=== PATIENT | female | born 1940 | race Caucasian/White ===

== ENCOUNTER 2017-04-15 20:20 | Inpatient (IN) | payer OTHER ==
--- NOTE | 2017-04-15 20:52 | EDPHY ---
H & P Stated Complaint: weakness, conused, recent diagnosed of UTI HPI/ROS: CHIEF COMPLAINT: Weakness, confused, recent UTI HISTORY OF PRESENT ILLNESS: The patient is a 76 y/o female with a history of hypertension, complaining of weakness, dizziness, and confusion. She was referred to the emergency department by her primary care physician, Dr. Quiñones. Much of this history was provided to me by Dr. Quiñones. On 03/15/17 the patient hit her head and received a black eye, there was no loss of consciousness. She did not receive medical care at that time. Following this injury, on March 26, she saw her PCP, the patient was doing well at that visit. On 03/27/17 she was seen in the emergency department at [facility] and diagnosed with a UTI and placed on Keflex. She fell due to dizziness on 03/29/17 and was again seen at [facility] Emergency Department. They reportedly performed a head CT and MRI, as well as a C-spine CT. On 04/06/17 she was seen by her PCP and was more confused; she was prescribed Macrobid at that visit. Her confusion persisted and On 04/09/17 she was admitted to [facility] for three days with a sodium of 124; her antibiotics were stopped during this visit. When she was discharged from that hospitalization she was advised to have someone with her at all times. As a result, family members have been staying with her. She does have some home health care including physical therapy and occupational therapy. Tonight she was advised to come to the ED by her PCP as she has been more weak, dizzy, and has had difficulty finding her words. The dizziness occurs when she stands up to use her walker. Her family has noticed that the patient has been more confused and talking about things that aren't happening. Her efdumzgh-sx-eyo accompanies her tyson and states that her balance seems intermittently poor. Her symptoms seemed to wax and wane. Currently has a mild burning sensation when urinating. Denies chest pain, shortness of breath, abdominal pain, bowel complaints, fevers or other pertinent symptoms. REVIEW OF SYSTEMS: A ten point review of systems was performed and is negative with the exception of the items mentioned in the HPI. Past medical history: 1. Hypertension 2. Hyponatremia 3. UTI 4. Breast cancer Past surgical history: Denies Family history: 1. Cataracts 2. Appendectomy 3. Bilateral mastectomy 4. Hysterectomy 5. Knee surgery Social history: Usspxbcd-ps-vlj at bedside, lives in [place], retired, General Appearance: Alert. Vital signs reviewed. Blood pressure 142/93. Eyes: Pupils equal and round, no conjunctival injection, no discharge. Anicteric. ENT, Mouth: Mucous membranes are moist, no oropharyngeal erythema or edema. Torus palatine. Neck: No lymphadenopathy, supple. Respiratory: Lungs are clear to auscultation; no wheezes, rales, or rhonchi. Cardiovascular: Regular rate and rhythm; no murmur, rub, or gallop. Gastrointestinal: Abdomen is soft and nontender, no masses or organomegaly, bowel sounds normal. Skin: Warm and dry, no rashes on exposed skin, normal color. Back: Nontender to palpation over the thoracolumbar spine. No CVAT. Extremities: No lower extremity edema, no calf tenderness or swelling. Neurological: Alert and oriented to person, place, year, and situation. Moving all four extremities easily and equally. Cranial nerves II through XII are examined and are intact (visual acuity not tested). She is somewhat slow to respond to questions and commands. She appears to have occasional word- finding difficulty. Strength is 5- over 5 bilaterally with testing of all major motor groups. Sensation is intact to light touch over all 4 extremities. Myacws-at-wbfz is performed accurately. Her gait, with assist, is slow and shuffling. No ataxia. Psychiatric: Normal affect. - Medical/Surgical History Hx Asthma: No Hx Chronic Respiratory Disease: No Hx Diabetes: No Hx Cardiac Disease: No Hx Renal Disease: No Hx Cirrhosis: No Hx Alcoholism: No Hx HIV/AIDS: No Hx Splenectomy or Spleen Trauma: No Other PMH: htn - Social History Smoking Status: Never smoked Constitutional: Initial Vital Signs Temperature (C) 36.6 C 04/15/17 20:30 Heart Rate 93 04/15/17 20:30 Respiratory Rate 20 04/15/17 20:30 Blood Pressure 142/93 H 04/15/17 20:30 O2 Sat (%) 94 04/15/17 20:30 O2 Delivery Mode Room Air O2 (L/minute) 2 Allergies/Adverse Reactions: indomethacin [From Indocin] Allergy (Severe, Verified 04/15/17 20:30) "FLUFF" IN CHEST-OUTSIDE OF LUNGS indomethacin sodium [From Indocin] Allergy (Severe, Verified 04/15/17 20:30) "FLUFF" IN CHEST-OUTSIDE OF LUNGS Sulfa (Sulfonamide Antibiotics) Allergy (Mild, Verified 04/15/17 20:30) Itching Home Medications: Medication Instructions Recorded ALLOPURINOL 06/20/09 ATENOLOL 06/20/09 Aspirin 06/20/09 Calcium 06/20/09 Chondroitin 06/20/09 Glucosamine 06/20/09 Hyzaar 06/20/09 Lasix 06/20/09 Lipitor 10 mg 06/20/09 Lopid 06/20/09 Norvasc 10 mg 06/20/09 Vitamin D 06/20/09 metFORMIN HCL 06/20/09 Medical Decision Making - Diagnostics Imaging: Discussed imaging studies w/ faculty i on call medical assistant Radiologist, I viewed and interpreted images myself ED Course/Re-evaluation: The patient is a 76 y/o female with a history of hypertension, recent hyponatremia, and recurrent or persistent UTI presenting with worsening confusion and weakness over the past month. Labs, EKG, and head CT ordered. She has had imaging done at an outside facility but she has had a fall, worsening balance and gait instability, and worsening confusion. I am concerned about a subacute or chronic subdural. I do not have confirmed results of her previous brain imaging. 2222: The 12 lead EKG was interpreted by myself as sinus rhythm with a rate of 76. See hard copy and/or "tracemaster" electronic copy for interpretation. 2234: Spoke with Dr. Bauman, radiologist, regarding this patient's head CT. There are no acute findings. Labs are reviewed. She is not hyponatremic today. White blood cell count is normal. TSH is normal. Clean-catch urine is positive for leukocyte esterase and white blood cells. It is sent for culture. I am suspecting recurrent or partially treated urinary tract infection. This may be the etiology of her confusion. She was given IV Invanz in the emergency department. 1 month ago she was reportedly living independently, paying her bills, and driving. Her family states that her gait was slow but that it has worsened appreciably over the past month. The acuity of her cognitive deterioration is not clear to me at this point. It is possible that her recent infections have unearthed some pre-existing cognitive impairment. I was able to access some of her records through [facility]. Brain MRI performed at a [facility] showed mild to moderate ischemic white matter disease with micro hemorrhage in the left hemisphere. Nothing has been found on brain imaging that would explain a change in cognition. There has been no report of seizure activity. Electrolytes tonight are normal with no evidence of hyponatremia. She does not drink alcohol. She is being admitted to the hospital for further evaluation--to look for reversible causes of dementia-- and treatment as needed. Differential Diagnosis: Altered mental status including but not limited to ongoing cognitive impairment , hypoglycemia, infectious process, electrolyte abnormality, head injury and intoxicants. - Data Points Laboratory Results: Laboratory Results 04/15/17 22:45 04/15/17 22:45 04/16/17 04/16/17 04/16/17 00:00 00:00 00:00 Sodium Potassium Chloride Carbon Dioxide Anion Gap BUN Creatinine Estimated GFR Glucose Calcium Phosphorus Troponin I Vitamin B12 582 pg/mL pg/mL (239-931) Vit D 1,25-Dihydroxy Pending TSH Urine Color YELLOW Urine Appearance HAZY Urine pH 6.0 (5.0-7.5) Ur Specific [place] 1.015 (1.002-1.030) Urine Protein NEGATIVE (NEGATIVE) Urine Ketones NEGATIVE (NEGATIVE) Urine Blood NEGATIVE (NEGATIVE) Urine Nitrate NEGATIVE (NEGATIVE) Urine Bilirubin NEGATIVE (NEGATIVE) Urine Urobilinogen NEGATIVE EU EU (0.2-1.0) Ur Leukocyte Esterase 3+ H (NEGATIVE) Urine RBC 1-3 /hpf /hpf (0-3) Urine WBC 25-50 /hpf H /hpf (0-3) Ur Epithelial Cells TRACE /lpf /lpf (NONE-1+) Urine Mucus TRACE /lpf /lpf (NONE-1+) Urine Glucose NEGATIVE (NEGATIVE) 04/15/17 22:45 Sodium 139 mEq/L mEq/L (135-145) Potassium 4.3 mEq/L mEq/L (3.5-5.2) Chloride 101 mEq/L mEq/L (97-110) Carbon Dioxide 24 mEq/l mEq/l (22-31) Anion Gap 14 mEq/L mEq/L (8-16) BUN 29 mg/dL H mg/dL (7-23) Creatinine 1.0 mg/dL mg/dL (0.6-1.0) Estimated GFR 54 Glucose 136 mg/dL H mg/dL (70-100) Calcium 10.7 mg/dL H mg/dL (8.5-10.4) Phosphorus 3.3 mg/dL mg/dL (2.5-4.5) Troponin I < 0.012 ng/mL ng/mL (0.000-0.034) Vitamin B12 Vit D 1,25-Dihydroxy TSH 1.530 uIU/mL uIU/mL (0.465-4.680) Urine Color Urine Appearance Urine pH Ur Specific Uriah Urine Protein Urine Ketones Urine Blood Urine Nitrate Urine Bilirubin Urine Urobilinogen Ur Leukocyte Esterase Urine RBC Urine WBC Ur Epithelial Cells Urine Mucus Urine Glucose Medications Given: Acetaminophen (Tylenol) 650 mg PO Q4HRS PRN PRN Reason: Pain, Mild/Fever, Can Take PO Stop: 10/13/17 00:04 Last Admin: 04/16/17 02:00 Dose: 650 mg Enoxaparin Sodium (Lovenox) 30 mg SC DAILY [facility] Stop: 10/13/17 08:59 Last Admin: 04/16/17 09:28 Dose: 30 mg Discontinued Medications Ertapenem (Invanz) 1 gm IVP EDNOW ONE PRN Reason: Protocol Stop: 04/16/17 00:24 Last Admin: 04/16/17 00:52 Dose: 1 gm Departure - Departure Disposition: [facility] Inpatient Acute Clinical Impression: Urinary tract infection Qualifiers: Urinary tract infection type: acute cystitis Hematuria presence: without hematuria Qualified Code(s): N30.00 - Acute cystitis without hematuria Altered mental status Qualifiers: Altered mental status type: unspecified Qualified Code(s): R41.82 - Altered mental status, unspecified Condition: Good Report Scribed for: Kacie Parks Report Scribed by: Lynn Santos Date of Report: 04/15/17 Time of Report: 21:02 Physician Review and Approval Statement: 04/15/17 20:52 Portions of this note were transcribed by the certified medical asst. I, Dr. Kacie Parks, personally performed the history, physical exam, and medical decision- making; and confirmed the accuracy of the information in the transcribed note.
--- NOTE | 2017-04-15 22:25 | CPEKG ---
Heart Rate: 76 RR Interval: 789 P-R Interval: 180 QRSD Interval: 86 QT Interval: 384 QTC Interval: 432 P [place]: 64 QRS [place]: -21 T Wave [place]: 72 EKG Severity - OTHERWISE NORMAL ECG - EKG Impression: SINUS RHYTHM EKG Impression: BORDERLINE LEFT AXIS DEVIATION Electronically Signed By: Kacie Parks 15-Apr-2017 23:58:15
[2017-04-15 22:58] LABS: PLATELET COUNT 201 10^3/uL (150-400)
[2017-04-16] MEDS ORDERED: ACETAMINOPHEN 325 MG TAB PO PRN (00:05)
[2017-04-16] MEDS ORDERED: ONDANSETRON DISINTEGRATING 4 MG TAB PO PRN (00:05)
[2017-04-16] MEDS ORDERED: ONDANSETRON 4 MG/2 ML VIAL IVP PRN (00:05)
[2017-04-16] MEDS ORDERED: ERTAPENEM 1 GM VIAL IVP ONE (00:23)
--- NOTE | 2017-04-16 01:09 | PDGENHP ---
History and Physical - Chief Complaint Falls, confusion - History of Present Illness 76 yo F w/ hx of HTN, gout, diet controlled DM, and remote hx of breast CA presents with 1 month of falls and confusion. Patient was sent to ED by PCP due to concern for patient's rapid decline in functional status. As of one month ago patient was paying her own bills and doing quite well living independently. Over the last month she has experienced falls, episodes of confusion, and dizziness. She was admitted to [facility] twice during this period ( records available in [facility]) and treated for UTI and hyponatremia. In terms of her UTI she was initially treated with Keflex but then changed to Macrobid when her culture revealed ESBL E. Coli. Patient reports many UTI's throughout the course of her life. Macrobid was stopped early as UA was normal on 04/09. Patient notes her dysuria returned after the antibiotics stopped. Today patient denies confusion but feels fatigued and somewhat generally weak. Work-up in the ED was relatively unremarkable with normal chemistry, no leukocytosis, and a non-acute CTH. Patient is being admitted for further work- up. History Information - Allergies/Home Medication List Allergies/Adverse Reactions: indomethacin [From Indocin] Allergy (Severe, Verified 04/15/17 20:30) "FLUFF" IN CHEST-OUTSIDE OF LUNGS indomethacin sodium [From Indocin] Allergy (Severe, Verified 04/15/17 20:30) "FLUFF" IN CHEST-OUTSIDE OF LUNGS Sulfa (Sulfonamide Antibiotics) Allergy (Mild, Verified 04/15/17 20:30) Itching Home Medications: ALLOPURINOL 06/20/09 [Last Taken Unknown] ATENOLOL 06/20/09 [Last Taken Unknown] Aspirin 06/20/09 [Last Taken Unknown] Calcium 06/20/09 [Last Taken Unknown] Chondroitin 06/20/09 [Last Taken Unknown] Glucosamine 06/20/09 [Last Taken Unknown] Hyzaar 06/20/09 [Last Taken Unknown] Lasix 06/20/09 [Last Taken Unknown] Lipitor 10 mg 06/20/09 [Last Taken Unknown] Lopid 06/20/09 [Last Taken Unknown] Norvasc 10 mg 06/20/09 [Last Taken Unknown] Vitamin D 06/20/09 [Last Taken Unknown] metFORMIN HCL 03/31/10 [Last Taken Unknown] I have personally reviewed and updated: family history, medical history - Past Medical History cancer (Breast, remote), diabetes type 2, hypertension Additional medical history: Gout - Family History Positive for: cancer - Social History Smoking Status: Never smoked Review of Systems Review of Systems: ROS: 10pt was reviewed & negative except for what was stated in HPI & below Physical Exam Physical Exam: Temp Pulse Resp BP Pulse Ox 36.6 C 74 16 131/70 H 95 04/15/17 20:30 04/16/17 00:30 04/16/17 00:30 04/16/17 00:30 04/16/17 00:30 O2 (L/minute) 2 Constitutional: no apparent distress, not in pain Eyes: PERRL, EOMI Ears, Nose, Mouth, Throat: moist mucous membranes, no oral mucosal ulcers Cardiovascular: regular rate and rhythym, systolic murmur Respiratory: no respiratory distress, clear to auscultation Gastrointestinal: normoactive bowel sounds, soft, non-tender abdomen Skin: warm, normal color Musculoskeletal: full muscle strength, no muscle tenderness Neurologic: CN II-XII Intact, other (A&Ox2, thought it was April 19) Psychiatric: interacting appropriately, not anxious Lab Data & Imaging Review 04/15/17 22:45 04/15/17 22:45 WBC 6.57 10^3/uL (3.80-9.50) 04/15/17 22:45 RBC 4.01 10^6/uL (4.18-5.33) L 04/15/17 22:45 Hgb 12.5 g/dL (12.6-16.3) L 04/15/17 22:45 Hct 35.9 % (38.0-47.0) L 04/15/17 22:45 MCV 89.5 fL (81.5-99.8) 04/15/17 22:45 MCH 31.2 pg (27.9-34.1) 04/15/17 22:45 MCHC 34.8 g/dL (32.4-36.7) 04/15/17 22:45 RDW 13.9 % (11.5-15.2) 04/15/17 22:45 Plt Count 201 10^3/uL (150-400) 04/15/17 22:45 MPV 10.8 fL (8.7-11.7) 04/15/17 22:45 Neut % (Auto) 67.4 % (39.3-74.2) 04/15/17 22:45 Lymph % (Auto) 23.7 % (15.0-45.0) 04/15/17 22:45 [place] % (Auto) 6.7 % (4.5-13.0) 04/15/17 22:45 Eos % (Auto) 1.5 % (0.6-7.6) 04/15/17 22:45 Baso % (Auto) 0.5 % (0.3-1.7) 04/15/17 22:45 Nucleat RBC Rel Count 0.0 % (0.0-0.2) 04/15/17 22:45 Absolute Neuts (auto) 4.43 10^3/uL (1.70-6.50) 04/15/17 22:45 Absolute Lymphs (auto) 1.56 10^3/uL (1.00-3.00) 04/15/17 22:45 Absolute Monos (auto) 0.44 10^3/uL (0.30-0.80) 04/15/17 22:45 Absolute Eos (auto) 0.10 10^3/uL (0.03-0.40) 04/15/17 22:45 Absolute Basos (auto) 0.03 10^3/uL (0.02-0.10) 04/15/17 22:45 Absolute Nucleated RBC 0.00 10^3/uL (0-0.01) 04/15/17 22:45 Immature Gran % 0.2 % (0.0-1.1) 04/15/17 22:45 Immature Gran # 0.01 10^3/uL (0.00-0.10) 04/15/17 22:45 Sodium 139 mEq/L (135-145) 04/15/17 22:45 Potassium 4.3 mEq/L (3.5-5.2) 04/15/17 22:45 Chloride 101 mEq/L (97-110) 04/15/17 22:45 Carbon Dioxide 24 mEq/l (22-31) 04/15/17 22:45 Anion Gap 14 mEq/L (8-16) 04/15/17 22:45 BUN 29 mg/dL (7-23) H 04/15/17 22:45 Creatinine 1.0 mg/dL (0.6-1.0) 04/15/17:45 Estimated GFR 54 04/15/17 22:45 Glucose 136 mg/dL (70-100) H 04/15/17:45 Calcium 10.7 mg/dL (8.5-10.4) H 04/15/17:45 Phosphorus 3.3 mg/dL (2.5-4.5) 04/15/17:45 Troponin I < 0.012 ng/mL (0.000-0.034) 04/15/17:45 TSH 1.530 uIU/mL (0.465-4.680) 04/15/17:45 Urine Color YELLOW 04/16/17 00:00 Urine Appearance HAZY 04/16/17 00:00 Urine pH 6.0 (5.0-7.5) 04/16/17 00:00 Ur Specific [place] 1.015 (1.002-1.030) 04/16/17 00:00 Urine Protein NEGATIVE (NEGATIVE) 04/16/17 00:00 Urine Ketones NEGATIVE (NEGATIVE) 04/16/17 00:00 Urine Blood NEGATIVE (NEGATIVE) 04/16/17 00:00 Urine Nitrate NEGATIVE (NEGATIVE) 04/16/17 00:00 Urine Bilirubin NEGATIVE (NEGATIVE) 04/16/17 00:00 Urine Urobilinogen NEGATIVE EU (0.2-1.0) 04/16/17 00:00 Ur Leukocyte Esterase 3+ (NEGATIVE) H 04/16/17 00:00 Urine RBC 1-3 /hpf (0-3) 04/16/17 00:00 Urine WBC 25-50 /hpf (0-3) H 04/16/17 00:00 Ur Epithelial Cells TRACE /lpf (NONE-1+) 04/16/17 00:00 Urine Mucus TRACE /lpf (NONE-1+) 04/16/17 00:00 Urine Glucose NEGATIVE (NEGATIVE) 04/16/17 00:00 Imaging Review: Imaging Impressions Head CT 04/15/17 22:01 Impression: Senescent features, with no acute/subacute intracranial abnormality identified on this unenhanced CT evaluation. If there is further clinical concern regarding the patient's symptoms, MR imaging is suggested, if not otherwise contraindicated. Findings were discussed with CHRISTOPHER BECKWITH MD at 22:33, on 04/15/2017. Assessment & Plan Assessment: 76 yo F w/ HTN, diet controlled DM, gout, and history of breast CA presents with ongoing issues with falls and confusion in the setting of persistent UTI. Plan: 1. Falls, confusion - This has been waxing and waning for the last month with 2 admissions to [facility]. She was initially diagnosed with a UTI and treated with Keflex and then Macrobid when culture revealed ESBL. Her UA is infectious again today and she is also complaining of dysuria. It is possible these symptoms are due to persistent infection. However, her PCP directed patient to ED due to concern over sharp functional decline over the course of the last month. [facility] records (available in [facility]) notable for mild to moderate, chronic ischemic disease and small focus of chronic microhemorrhage in the left cerebral hemisphere. - Reversible dementia work-up with TSH, B12, RPR - Neurology consultation - Treat UTI as below - PT/OT consultations 2. UTI - Seems to be persistent for the last month despite courses of Keflex and Macrobid. Records from [facility] indicate ESBL E. Coli. It is possible Macrobid was insufficient treatment for this organism. Patient started experiencing dysuria shortly after stopping antibiotics. - Invanz 1g qD - Repeat urine culture 3. HTN - On amlodipine 10 mg qD and Losartan/HCTZ 100/25 qD as outpatient, needs med reconciliation. 4. Gout - Maintained on allopurinol, no evidence of exacerbation. 5. DM - Diet controlled, not on medications. Monitor and would start low protocol insulin if hyperglycemic. Diet - Regular Code - Full Ppx - LMWH Dispo - Admit to observation status
[2017-04-16 04:43] LABS: PLATELET COUNT 182 10^3/uL (150-400)
[2017-04-16] MEDS ORDERED: ENOXAPARIN 30 MG/0.3 ML SYR SC SCH ×2 (09:00→11:28)
--- NOTE | 2017-04-16 10:12 | GCON ---
[f rep st] CONSULTATION NEUROLOGY CONSULT DATE OF CONSULTATION: 04/16/2017 CHIEF COMPLAINT: Mental status changes and gait changes. HISTORY OF PRESENT ILLNESS: The patient is a very pleasant 76-year-old lady who may have an underlyi ng mild cognitive impairment that has been present for 2 or 3 years. According to the patient, she h as had some very mild short-term memory changes in the last 2-3 years. In addition, she has hyperten jurgen, gout, diet-controlled diabetes, and a remote history of breast cancer. She began having recurr ent UTIs around 1 month ago. In this setting, has had lightheadedness with standing based on her flu id intake, which has led to a fall and the need for intermittent use of her walker, along with feelin g confused at times. No focality of these symptoms. She was admitted twice at [facility] this period, and I reviewed Dr. Flores's H and P, which notes he reviewed outside records, inc luding a recent MRI brain, which he reports as being notable for mild to moderate chronic ischemic di sease and a single focus of microhemorrhage in the left hemisphere. We repeated a head CT here, whic h showed an elderly brain. Her UA is still abnormal with 25-50 white cells present in the urine. Jina hoffman is being treated for a recurrent UTI and has dysuria again. REVIEW OF SYSTEMS: Ten-point review of systems was done and only pertinent to the HPI. For past medical history, social history, family history, and home medications, please see Dr. Flores's note. PHYSICAL EXAM: VITAL SIGNS: Temperature 36.6, pulse 74, respirations 16, blood pressure 137/70. NE UROLOGIC: Generally, no acute distress, very pleasant. Higher mental function: She is awake and al ert, repeats 5/5, names 5/5, follows commands 3/3. No aphasia. She is oriented to month, date, and year. She knows the name of the president and the ramp service agent. She knows the city and state. He r mental status exam was objectively normal with the exception of some mild psychomotor slowing in fo llowing commands. It took her a moment to register showing 3 fingers on her left hand, for example. Cranial nerve exam 2 through 7 was normal. Motor exam was normal to strength and tone throughout. Sensory exam: Normal to light touch throughout. Qbnofg-vwmu-roizjt was normal bilaterally. IMPRESSION/PLAN: 1. Delirium. 2. Recurrent urinary tract infections. 3. Query underlying mild cognitive impairment. Overall, my impression is the patient is having some mild delirium in the setting of recurrent urinar y tract infections and possible underlying mild cognitive impairment. I do not see an acute neurolog ic process based on her current history, exam, and imaging. She was counseled at length. She is edi ng treated for her urinary tract infection. I defer to my colleagues in Hospital Medicine for final treatment recommendations and disposition. Her laboratory values show a normal TSH and B12. Going forward, my office will contact her to make an outpatient followup once her infection is resolv ed for further evaluation and treatment of possible mild cognitive impairment. No further recommenda tions now. Thank you for this consultation. We will continue to follow this very pleasant lady as needed. Plea se do not hesitate to call with any questions or changes in neurologic status with this patient. Flores stein total minutes on floor today reviewing records, imaging, labs, and indirect counseling with the patient and coordination of care. /[id number]/MODL
--- NOTE | 2017-04-16 10:39 | ASMTCASEMG ---
Living Arrangements What is your living Answers: Alone arrangement? Who do you live with? Type Of Residence What kind of residence do Answers: House you live in? Discharge Plan Comments Coordination Status Comments Notes: Pt is a 76 y/o female admitted for falls and confusion. Therapies have been ordered and awaiting recommendation. Neurology is consulting. Needs are TBD at this time. CM to follow. Plan: TBD Date Signed: 04/16/2017 10:38 AM Electronically Signed By:PHANI Vidal
--- NOTE | 2017-04-16 13:06 | HOSPPROG ---
Hospitalist Progress Note Assessment/Plan: Assessment: 76 yo F w/ HTN, diet controlled DM, gout, and history of breast CA presents with ongoing issues with falls and confusion in the setting of persistent UTI. 1. Falls, confusion thought to be secondary to metabolic encephalopathy in the setting of urinary tract infection -MRI of the brain done at [facility] was negative for metastatic disease. I discussed case with Dr. Funez of neurology who recommends treatment of the UTI and outpatient follow-up - Reversible dementia work-up with TSH, B12, RPR - Treat UTI as below - PT/OT recommends halfway facility placement 2. UTI - Seems to be persistent for the last month despite courses of Keflex and Macrobid. Records from [facility] indicate ESBL E. Coli. It is possible Macrobid was insufficient treatment for this organism. Patient started experiencing dysuria shortly after stopping antibiotics. - Invanz 1g qD - Repeat urine culture 3. HTN - On amlodipine 10 mg qD and Losartan/HCTZ 100/25 qD as outpatient, needs med reconciliation. 4. Gout - Maintained on allopurinol, no evidence of exacerbation. 5. DM - Diet controlled, not on medications. Monitor and would start low protocol insulin if hyperglycemic. Diet - Regular Code - Full Ppx - LMWH Dispo - change in patient's status is the patient is quite debilitated will likely need halfway facility placement Subjective: Still reports some word-finding difficulties but overall feeling better. She did have some pain with urination this morning. Her appetite is decreased but she is eating. Denies any chest pain or shortness of breath. Objective: Vital Signs Temp Pulse Resp BP Pulse Ox 36.9 C 86 16 142/74 H 98 04/16/17 10:58 04/16/17 10:58 04/16/17 10:58 04/16/17 10:58 04/16/17 10:58 Laboratory Results 04/16/17 04:18 04/16/17 04:18 04/15/17 04/16/17 04/17/17 05:59 05:59 05:59 Intake Total 20 240 Output Total 850 250 Balance -830 -10 - Physical Exam Constitutional: no apparent distress, appears nourished, not in pain Cardiovascular: regular rate and rhythym, no murmur, rub, or gallop Respiratory: no respiratory distress, no rales or rhonchi, clear to auscultation Neurologic: AAOx3, CN II-XII Intact, other (Coordinate Measuring Machine Technician strength is 5/5 bilateral and equal), No pronator drift, No facial droop ICD10 Worksheet Patient Problems: Problems Problem Status Onset Urinary tract infection Acute Altered mental status Acute
--- NOTE | 2017-04-16 17:08 | PDMN ---
Medical Necessity Medical necessity: Pt meets IP criteria per MD; est los >2 mn for eval/tx of possible metabolic encephalopathy in the setting of UTI resulting in rapid decline of functional status, confusion w/word finding difficulty & falls; admit for further workup/monitoring, Neuro consult, therapies & dc planning; hx HTN, diabetes, UTIs & breast cancer; per progress note & order 04/16/17
[2017-04-16] MEDS ORDERED: ERTAPENEM 1 GM VIAL IVP SCH (21:00)
[2017-04-17] MEDS: LOSARTAN/HCTZ 50/12.5 1 TAB PO SCH (08:57)
[2017-04-17] MEDS: ATORVASTATIN CALCIUM 20 MG TAB PO SCH (08:57)
[2017-04-17] MEDS: MULTIVITAMINS 1 EACH TAB PO SCH (08:57)
[2017-04-17] MEDS: ASPIRIN 81 MG CHEWABLE TAB PO SCH (08:57)
[2017-04-17] MEDS: ALLOPURINOL 100 MG TAB PO SCH (08:58)
[2017-04-17] MEDS ORDERED: LOSARTAN PO SCH (09:00)
[2017-04-17] MEDS ORDERED: ENOXAPARIN 30 MG/0.3 ML SYR SC SCH (09:00)
[2017-04-17] MEDS ORDERED: Herbals/Supplements -Info Only PO SCH (09:00)
[2017-04-17] MEDS ORDERED: ACETAMINOPHEN 325 MG TAB PO PRN (09:00)
[2017-04-17] MEDS ORDERED: HYDROCHLOROTHIAZIDE PO SCH (09:00)
[2017-04-17] MEDS: ENOXAPARIN 40 MG/0.4 ML SYR SC SCH (09:03)
--- NOTE | 2017-04-17 15:41 | ASMTCMCOM ---
CM Note CM Note Notes: Discussed pts case in morning rounds. CM spoke w/ Ilia, son on the phone regarding d/c POC. Ilia would like pt to go to [facility]. BENY spoke w/ Aury at [facility] and requested that she coordinates a meeting w/ Ilia. Referral sent to [facility]. [facility] is able to accept. Kendall and son discussed a 14 day respite stay and re-assess afterwards. Pt will be going to [facility] for rehab. Recommendations from therapies are SNF at this time. [facility] is aware. to follow. Plan: [facility] Date Signed: 04/17/2017 03:39 PM Electronically Signed By:PHANI Vidal
--- NOTE | 2017-04-17 15:55 | HOSPPROG ---
Hospitalist Progress Note Assessment/Plan: Assessment: 76 yo F w/ HTN, diet controlled DM, gout, and history of breast CA presents with ongoing issues with falls and confusion in the setting of persistent UTI. 1. Falls, confusion thought to be secondary to metabolic encephalopathy in the setting of urinary tract infection versus depression -MRI of the brain done at [facility] was negative for metastatic disease. I discussed case with Dr. Funez of neurology who recommends treatment of the UTI and outpatient follow-up - Reversible dementia work-up with TSH, B12, RPR (reviewed and unremarkable) - will DC ertapenem given her culture has grown multiple organisms and will repeat a UA -consider starting an antidepressant. I discussed with the patient who seems agreeable. Her outpatient primary care provider had recommended this in the past as well. The patient last had a discuss this with her son Ilia I called not available. - PT/OT recommends snf facility placement # suspected depression possibly contributing to her confusion -see above 2. UTI versus asymptomatic pyuria- Seems to be persistent for the last month despite courses of Keflex and Macrobid. Records from [facility] indicate ESBL E. Coli. It is possible Macrobid was insufficient treatment for this organism. Patient started experiencing dysuria shortly after stopping antibiotics. -repeat UA and monitor off of antibiotics -check procalcitonin level 3. HTN - On amlodipine 10 mg qD and Losartan/HCTZ 100/25 qD as outpatient, 4. Gout - Maintained on allopurinol, no evidence of exacerbation. 5. DM - Diet controlled, not on medications. Monitor and would start low protocol insulin if hyperglycemic. Diet - Regular Code - Full Ppx - LMWH Disposition: Continue inpatient care and plan to discharge to snf when medically stable Subjective: Denies any urinary complaints. Denies any new neurologic deficits. She does endorse some depression. She is not sleeping well. Objective: Vital Signs Temp Pulse Resp BP Pulse Ox 36.5 C 85 15 136/84 H 91 L 04/17/17 15:00 04/17/17 15:00 04/17/17 15:00 04/17/17 15:00 04/17/17 15:00 04/16/17 04/17/17 04/18/17 05:59 05:59 05:59 Intake Total 680 Output Total 1450 Balance -770 - Physical Exam Constitutional: no apparent distress, appears nourished, not in pain Cardiovascular: regular rate and rhythym, no murmur, rub, or gallop Respiratory: no respiratory distress, no rales or rhonchi, clear to auscultation Gastrointestinal: normoactive bowel sounds, soft, non-tender abdomen, no palpable masses Neurologic: AAOx3, sensation intact bilaterally, CN II-XII Intact, No facial droop ICD10 Worksheet Patient Problems: Problems Problem Status Onset Urinary tract infection Acute Altered mental status Acute
[2017-04-18] MEDS: ASPIRIN 81 MG CHEWABLE TAB PO SCH (09:38)
[2017-04-18] MEDS: LOSARTAN/HCTZ 50/12.5 1 TAB PO SCH (09:38)
[2017-04-18] MEDS: ENOXAPARIN 40 MG/0.4 ML SYR SC SCH (09:38)
[2017-04-18] MEDS: MULTIVITAMINS 1 EACH TAB PO SCH (09:39)
[2017-04-18] MEDS: ATORVASTATIN CALCIUM 20 MG TAB PO SCH (09:39)
[2017-04-18] MEDS: ALLOPURINOL 100 MG TAB PO SCH (09:39)
--- NOTE | 2017-04-18 12:25 | HOSPPROG ---
Hospitalist Progress Note Assessment/Plan: 76 yo F w/ HTN, diet controlled DM, gout, and history of breast CA presents with ongoing issues with falls and confusion in the setting of persistent UTI. 1. Falls, confusion thought to be secondary to metabolic encephalopathy in the setting of urinary tract infection versus depression -MRI of the brain done at [facility] was negative for metastatic disease. I discussed case with Dr. Funez of neurology who recommends treatment of the UTI and outpatient follow-up - Reversible dementia work-up with TSH, B12, RPR (reviewed and unremarkable) - will DC ertapenem given her culture has grown multiple organisms and will repeat a UA -consider starting an antidepressant. I discussed with the patient who seems agreeable. Her outpatient primary care provider had recommended this in the past as well. The patient last had a discuss this with her son Ilia I called not available. - PT/OT recommends long term facility placement # suspected depression possibly contributing to her confusion -see above 2. UTI versus asymptomatic pyuria- Seems to be persistent for the last month despite courses of Keflex and Macrobid. Records from [facility] indicate ESBL E. Coli. It is possible Macrobid was insufficient treatment for this organism. Patient started experiencing dysuria shortly after stopping antibiotics. -repeat UA and monitor off of antibiotics -check procalcitonin level 3. HTN - On amlodipine 10 mg qD and Losartan/HCTZ 100/25 qD as outpatient, 4. Gout - Maintained on allopurinol, no evidence of exacerbation. 5. DM - Diet controlled, not on medications. Monitor and would start low protocol insulin if hyperglycemic. Diet - Regular Code - Full Ppx - LMWH Disposition: Continue inpatient care and plan to discharge to long term when medically stable Subjective: no complaints of dysuria. has nocturia x3-5 without dysuria or urgency. No fever, back pain, nausea, vomiting, chest pain, cough. Objective: Vital Signs Temp Pulse Resp BP Pulse Ox 36.3 C 86 16 138/81 H 95 04/18/17 08:00 04/18/17 08:00 04/18/17 08:00 04/18/17 08:00 04/18/17 08:00 04/17/17 04/18/17 04/19/17 05:59 05:59 05:59 Intake Total 680 1400 Output Total 1450 1100 700 Balance -770 300 -700 - Time Spent With Patient Time Spent with Patient: greater than 35 minutes Time Spent with Patient: Greater than 35 minutes spent on this patients care, greater than 50% of time spent counseling, educating, and coordinating care regarding the above mentioned plan. - Pending Discharge Pending Discharge Within 24 Hours: Yes Pending Discharge Date: 04/19/17 Pending Discharge Time: 11:00 - Physical Exam Constitutional: no apparent distress Eyes: PERRL, anicteric sclera Ears, Nose, Mouth, Throat: moist mucous membranes, hard of hearing Cardiovascular: regular rate and rhythym, no murmur, rub, or gallop Respiratory: no respiratory distress, no rales or rhonchi Gastrointestinal: normoactive bowel sounds, soft, non-tender abdomen, other ( cva nontender bilaterally) Genitourinary: no bladder fullness, other (nontender to pressure) Skin: warm Musculoskeletal: full muscle strength Neurologic: AAOx3, CN II-XII Intact Psychiatric: interacting appropriately ICD10 Worksheet Patient Problems: Problems Problem Status Onset Altered mental status Acute Urinary tract infection Acute
--- NOTE | 2017-04-18 12:38 | PDIAF ---
- Diagnosis Code Status: Full Code - Medication Management Discharge Medications: Medications to Continue on Transfer Allopurinol [Allopurinol 100 MG (*)] 100 mg PO DAILY 04/16/17 [Last Taken ] Aspirin [Aspirin 81mg (*)] 81 mg PO DAILY 04/16/17 [Last Taken 04/15/17] Atorvastatin Calcium [Lipitor 20 mg (*)] 20 mg PO DAILY 04/16/17 [Last Taken ] Herbals/Supplements -Info Only 1 ea PO DAILY 04/16/17 [Last Taken Unknown] Losartan/Hydrochlorothiazide [Hyzaar 100-25 Tablet] 1 each PO DAILY 04/16/17 [ Last Taken 04/15/17] Multivitamins [Multivitamin (*)] 1 each PO DAILY 04/16/17 [Last Taken 04/15/17] amLODIPine BESYLATE [Norvasc 10 mg (*)] 10 mg PO DAILY 04/16/17 [Last Taken ] Sertraline HCl [Zoloft 25mg (*)] 25 mg PO DAILY #30 tab 04/18/17 [Last Taken Unknown] Discharge Medications: Refer to the Discharge Home Medication list for PRN reason. - Orders Services needed: Registered Nurse, Certified Bunk Assembler, Physical Therapy, Occupational Therapy Isolation Type: Contact Isolation Diet Recommendation: ADA 2000 consistent carb - Labs/Radiology UA Date: 04/23/17 (do UA and culture) - Follow Up Care Current Providers and Referrals: LYNN ESTRADA [Primary Care Provider] - As per Instructions
--- NOTE | 2017-04-18 14:00 | ASMTCMCOM ---
CM Note CM Note Notes: Pt ready for DC today but will not pvt room available until tomorrow. Due to pt's ESBL, [facility] wants to wait until tomorrow for pvt room. CM to follow. Date Signed: 04/18/2017 02:00 PM Electronically Signed By:Karen Vivas LCSW
[2017-04-18] MEDS: SERTRALINE HCL 25 MG TAB PO SCH (15:10)
[2017-04-19 07:19] VITALS: RESP 16; TEMP 98; O2SAT 90
[2017-04-19] MEDS: ALLOPURINOL 100 MG TAB PO SCH (08:09)
[2017-04-19] MEDS: MULTIVITAMINS 1 EACH TAB PO SCH (08:09)
[2017-04-19] MEDS: ATORVASTATIN CALCIUM 20 MG TAB PO SCH (08:09)
[2017-04-19] MEDS: ASPIRIN 81 MG CHEWABLE TAB PO SCH (08:09)
[2017-04-19] MEDS: SERTRALINE HCL 25 MG TAB PO SCH (08:09)
[2017-04-19] MEDS: LOSARTAN/HCTZ 50/12.5 1 TAB PO SCH (08:09)
[2017-04-19] MEDS: ENOXAPARIN 40 MG/0.4 ML SYR SC SCH (08:09)
[2017-04-19 10:43] VITALS: BP 118/68; PULSE 88
--- NOTE | 2017-04-19 12:30 | ASDISCHSUM ---
Discharge Information Plan Status:SNF Medically Cleared to Leave: Discharge Date:04/19/2017 12:10 PM CM D/C Disposition: ADT D/C Disposition:Detention Facility Projected Discharge Date:04/17/2017 11:00 AM Transportation at D/C: Discharge Delay Reason: Follow-Up Date:04/17/2017 11:00 AM Discharge Slot: Final Diagnosis: Placement Information Referral Type:*Penitentiary/SNF Referral ID:[id number] Provider Name:[facility] Address 1:[address] Address 2: City:[place] Selection Factors: State:[place] Patient Contact Information Contact Name:EDER Relationship:Son Address:[address] City:[place] Alternate Phone: State/Zip Code:[place] [address] Email: Financial Information Financial Class: Primary Plan Desc:MEDICARE INPATIENT Primary Plan Number:[id number] Secondary Plan Desc:[employer]O INDEMNITY Secondary Plan Number:[id number] Assessment Information [facility] Initial CM Assessment Living Arrangements What is your living Answers: Alone arrangement? Who do you live with? Type Of Residence What kind of residence do Answers: House you live in? Discharge Plan Comments Coordination Status Comments Notes: Pt is a 76 y/o female admitted for falls and confusion. Therapies have been ordered and awaiting recommendation. Neurology is consulting. Needs are TBD at this time. CM to follow. Plan: TBD Date Signed: 04/16/2017 10:38 AM Electronically Signed By:PHANI Vidal [facility] CM Progress Note CM Note CM Note Notes: Discussed pts case in morning rounds. CM spoke w/ Ilia, son on the phone regarding d/c POC. Ilia would like pt to go to [facility]. CM spoke w/ Aury at [facility] and requested that she coordinates a meeting w/ Ilia. Referral sent to [facility]. [facility] is able to accept. Kendall and son discussed a 14 day respite stay and re-assess afterwards. Pt will be going to [facility] for rehab. Recommendations from therapies are SNF at this time. [facility] is aware. CM to follow. Plan: [facility] Date Signed: 04/17/2017 03:39 PM Electronically Signed By:PHANI Vidal [facility] CM Progress Note CM Note CM Note Notes: Pt ready for DC today but will not pvt room available until tomorrow. Due to pt's ESBL, [facility] wants to wait until tomorrow for pvt room. CM to follow. Date Signed: 04/18/2017 02:00 PM Electronically Signed By:Karen Vivas LCSW Case Management Discharge Plan Note Case Management Discharge Discharge Order Complete? Answers: Yes Patient to Obtain Answers: Other Notes: SNF Medications Transportation Arranged Answers: Family/Friends Faxed Final Orders Answers: Yes Agency/Facility Transfer Answers: Yes Report Printed & Faxed to Receiving Agency Family Notified Answers: Yes Date Signed: 04/19/2017 03:22 PM Electronically Signed By:Karen Vivas LCSW Intervention Information Intervention Type:*CRABTREE-Signed Date of Service:04/16/2017 11:55 AM Patient Type:Observation Staff Member:Maritza Stallings Hours: Discipline: Severity: Comment:
== END 2017-04-19 12:10 | DRG 71 ==
LOC: F2W 04-16 01:29 → OBSVTOIN 04-16 11:29
PROVIDERS: ADMIT Student in an Organized Health Care Education/Training Program; ATTEND Student in an Organized Health Care Education/Training Program
DX: G93.41 Metabolic encephalopathy (principal); N39.0 Urinary tract infection, site not specified; F32.9 Major depressive disorder, single episode, unspecified; R29.6 Repeated falls; I10 Essential (primary) hypertension; M10.9 Gout, unspecified; E11.9 Type 2 diabetes mellitus without complications; Z85.3 Personal history of malignant neoplasm of breast
CPT/HCPCS: 82607-90; 82652-90; 92507-GN; 92523-GN; 97110-GP; 97116-GP; 97162-GP; 97166-GO; 97530-GP; 97535-GO; G8978-GP-CK; G8979-GP-CI; G8987-GO-CK; G8988-GO-CI; G8989-GO-CJ; G9168-GN-CK; G9169-GN-CI; J1335; J1650